=== PATIENT | female | born 1990 | race African-American/Black ===

== ENCOUNTER 2019-09-21 20:01 | Emergency (ER) | payer MEDICAID ==
[~2019-09-21] VITALS: Ht 170.2 cm; Wt 81.6 kg
[2019-09-21] MEDS ORDERED: VENTOLIN HFA18 GM INH (20:02)
--- NOTE | 2019-09-21 20:09 | Emergency Room Report ---
History of Present Illness General Chief Complaint: Allergic Reaction Source: Patient Present Illness HPI Patient brought by EMS after having wheezing and swelling after eating peanuts. She has a known allergy to peanuts and also history of asthma. They gave her IM epinephrine in the field. She started feeling better a few minutes after delivery of this. She is also 23 weeks at this time. She does have an EpiPen but does not carry it with her. This is not her worst allergic reaction. She also reported wheezing initially which resolved with the IM epinephrine. A 12-lead EKG was performed in the field and was normal. Accu- Chek was 129. He also noted the patient had some tongue swelling. The patient has a history of asthma but denies chronic inhaler use. This is her first . No fevers, chills, sore throat, chest pain, palpitations, nausea, vomiting, diarrhea, dysuria, abdominal pain, joint pain, rashes, depression, anxiety, visual changes, dizziness, headache. Allergies: Coded Allergies: PEANUT (Verified Allergy, Unknown, 09/21/19) COVID-19 Screening Contact w/high risk pt: No Recent Travel to affected area: No Experienced COVID-19 symptoms?: No COVID-19 Testing performed STRAIN TECHNICIAN: No Patient History Past Medical History: see triage record Social History: Denies: smoking, alcohol use, drug use Social History Narrative Not working : 1 Para: 0 Reviewed Nursing Documentation: PMH: Agreed; PSxH: Agreed Nursing Documentation-PMH Hx Asthma: Yes Review of Systems All Other Systems: negative except mentioned in HPI Physical Exam Vital Signs Date Time Temp Pulse Resp B/P (MAP) Pulse Ox O2 Delivery O2 Flow Rate FiO2 09/21/19 19:57 98.6 84 16 122/74 (90) 100 Room Air Sp02 EP Interpretation: reviewed, normal General Appearance: well appearing, no apparent distress, GCS 15 Head: normocephalic Eyes: bilateral eye normal inspection, bilateral eye PERRL, bilateral eye EOMI ENT: normal pharynx, no angioedema, moist mucus membranes Neck: supple Respiratory: lungs clear, normal breath sounds Cardiovascular #1: regular rate, rhythm Cardiovascular #2: 2+ radial (R) Gastrointestinal: normal inspection, non tender, non-distended, other - Gravid Genitourinary: no CVA tenderness Musculoskeletal: back normal, normal range of motion, gait/station normal Neurologic: alert, oriented x3, normal inspection Psychiatric: mood/affect normal Skin: no rash, warm/dry Medical Decision Making Diagnostic Impression: Primary Impression: Allergic reaction Qualified Codes: T78.40XA - Allergy, unspecified, initial encounter Additional Impression: 23 weeks gestation of ER Course The patient is 23 weeks with a history of allergies to peanuts presents via EMS after ingesting peanuts at a [employer] and receiving IM epinephrine in the field. She experienced relief fairly quickly. Differential includes anaphylaxis, angioedema, allergic reaction to peanuts amongst others. The patient initially did not want to be seen in the emergency department was but was convinced that further treatment was necessary. IV Solu-Medrol was administered. A urinalysis is checked to exclude acute infection. Due to the fact that she is and the potential for anaphylaxis this is a complicated patient that needs close monitoring and repeat evaluation. Urinalysis unremarkable. The patient was observed and symptoms resolved. Her lung exam was clear throughout the visit and her vital signs were stable. Treatment plan was discussed with the patient including caring for her EpiPen with her. She was advised to follow-up with her [facility]. Patient stable for outpatient observation and treatment. Laboratory Tests Test 09/21/19 20:15 Urine Color Pale yellow Urine Appearance Clear Urine pH 6.5 (4.5-8.0) Urine Specific [place] 1.005 (1.005-1.035) Urine Protein Negative (NEGATIVE) Urine Glucose (UA) Negative (NEGATIVE) Urine Ketones Negative (NEGATIVE) Urine Blood Negative (NEGATIVE) Urine Nitrite Negative (NEGATIVE) Urine Bilirubin Negative (NEGATIVE) Urine Urobilinogen Normal MG/DL (0.0-1.0) Urine Leukocyte Esterase Negative (NEGATIVE) EKG Diagnostic Results Rate: normal Rhythm: NSR ST Segments: no acute changes Other Impression Prehospital EKG reviewed Rhythm Strip Diag. Results EP Interpretation: yes Rhythm: NSR, no PVC's, no ectopy Last Vital Signs Date Time Temp Pulse Resp B/P (MAP) Pulse Ox O2 Delivery O2 Flow Rate FiO2 09/21/19 21:25 98.6 82 16 118/70 100 Room Air Status: improved Disposition: HOME, SELF-CARE Condition: Improved Scripts Diphenhydramine Hcl* (BENADRYL*) 25 Mg Capsule 25 MG ORAL Q6H PRN for Itching, #14 CAP Prov: Vero,Abraham MD 09/21/19 Prednisone* (PREDNISONE*) 20 Mg Tablet 40 MG ORAL DAILY, #10 TAB Prov: Abraham Pham MD 09/21/19 Abraham Pham MD Sep 21, 2019 20:09
--- NOTE | 2019-09-21 20:10 | NUR ---
ED Nurse Note: Patient brought in by ambulance [id number] with c/o peanut allergic reaction. Patient had and swelling and difficulty swallowing after ingestion of peanuts. Per EMS patient was given EPI IM and was relieved of symptoms after. Patient is 23 weeks . Patient is [id number] and ambulatory.
[2019-09-21] MEDS ORDERED: Solu-MEDROL 125mg Inj IVP ONE (20:15)
[2019-09-21 20:38] VITALS: BP 122/74
[2019-09-21 20:41] LABS: APPEARANCE,URINE CLEAR; BILIRUBIN, URINE NEGATIVE (NEGATIVE); COLOR,URINE PALE YELLOW; GLUCOSE, URINE (UA) NEGATIVE (NEGATIVE); KETONES,URINE NEGATIVE (NEGATIVE); LEUKOCYTE ESTERASE ,URINE NEGATIVE (NEGATIVE); NITRITE,URINE NEGATIVE (NEGATIVE); PH,URINE 6.5 (4.5-8.0); PROTEIN,URINE NEGATIVE (NEGATIVE); UROBILINOGEN,URINE NORMAL MG/DL (0.0-1.0)
[2019-09-21] MEDS ORDERED: PREDNISONE20 MG ORAL (21:14)
[2019-09-21] MEDS ORDERED: BENADRYL25 MG ORAL (21:14)
[2019-09-21 21:25] VITALS: BP 118/70
--- NOTE | 2019-09-21 21:25 | NUR ---
ER DISCHARGE NOTE: Patient is cleared to be discharged per ERMD, pt is aox4, on room air, with stable vital signs. pt was given dc and prescription instructions, pt was able to verbalize understanding, pt id band and iv site removed without complications. pt is able to ambulate with steady gait. patient was picked up by a friend in the waiting room. pt took all belongings.
== END 2019-09-21 21:25 | disposition home or self-care (01) ==
LOC: EDBD 20:01 → EMR 20:12
DX: T78.40XA Allergy, unspecified, initial encounter (principal); O26.892 Other specified pregnancy related conditions, second trimester; Z3A.23 23 weeks gestation of pregnancy; Z91.010 Allergy to peanuts
CPT/HCPCS: 81003; 96374; J2930; Z7502; 99284